=== PATIENT | male | born 1990 | race Caucasian/White ===

== ENCOUNTER 2018-04-30 21:17 | Emergency (ER) | payer BC ==
[~2018-04-30] VITALS: Ht 167.6 cm; Wt 70.3 kg
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
[2018-04-30] MEDS ORDERED: LIDOCAINE 1%-EPI 1:100,000 20 ML VIAL ONE (21:38)
[2018-04-30 22:14] LABS: BASOPHILS % (AUTO) 0.5 % (0.0-2.0); EOSINOPHILS % (AUTO) 2.5 % (0.0-6.0); HEMATOCRIT 47 % (39-51); LYMPHOCYTES # (AUTO) 1.8 /CMM (0.8-4.8); LYMPHOCYTES % (AUTO) 23.6 % (20.0-44.0); MEAN CORPUSCULAR HGB CONC 34 g/dl (31.0-36.0); MEAN CORPUSCULAR VOLUME 97 fL (80-96); MONOCYTES # (AUTO) 0.6 /CMM (0.1-1.30); MONOCYTES % (AUTO) 7.4 % (2.0-12.0); NEUTROPHILS # (AUTO) 5.1 /CMM (1.8-8.9); PLATELET COUNT (AUTO) 229 /CMM (150-450); RDW COEFFICIENT OF VARIATION 12.7 (11.5-15.0); RED BLOOD CELL COUNT(AUTO) 4.85 MIL/uL (4.5-6.0); WHITE BLOOD COUNT (AUTO) 7.7 K/uL (4.3-11.0)
[2018-04-30 22:27] LABS: CALCIUM, SERUM 8.9 mg/dL (8.5-10.1); CREATININE 0.9 mg/dL (0.6-1.3); POTASSIUM 3.7 mmol/L (3.5-5.1)
[2018-04-30 22:33] LABS: ALBUMIN 4.2 g/dL (3.4-5.0); BILIRUBIN,DIRECT 0.1 mg/dL (0.0-0.2); BILIRUBIN,TOTAL 0.8 mg/dL (0.2-1.0); SALICYLATE 2.8 mg/dL (2.8-20.0); TOTAL PROTEIN, SERUM 7.5 g/dL (6.4-8.2)
--- NOTE | 2018-04-30 22:37 | NUR ---
CALLED ART FOR PSYCH EVAL, ETA WITHIN THE HOUR.
[2018-04-30 22:54] LABS: APPEARANCE,URINE CLEAR (CLEAR); BILIRUBIN,URINE NEGATIVE (NEGATIVE); BLOOD, URINE NEGATIVE Ery/uL (NEGATIVE); COLOR,URINE YELLOW (YELLOW); KETONES,URINE NEGATIVE (NEGATIVE); LEUKOCYTE ESTERASE ,URINE NEGATIVE (NEGATIVE); NITRITE, URINE NEGATIVE (NEGATIVE); PROTEIN,URINE NEGATIVE (NEGATIVE); UGLUCOSE NEGATIVE (NEGATIVE); UROBILINOGEN,URINE 0.2 EU/dL (0.2)
--- NOTE | 2018-04-30 23:25 | NUR ---
AWAITNG FOR PSYCHE EVALUATION. VSS
--- NOTE | 2018-04-30 23:36 | NUR ---
ART AT BEDSIDE FOR EVAL.
--- NOTE | 2018-05-01 00:30 | NUR ---
Patient discharged to home in stable condition. Written and verbal after care instructions given. Patient verbalizes understanding of instruction. ambulatory with a steady gait. pt accompanied by mother
[2018-05-01 02:20] VITALS: BP 128/68
== END 2018-05-01 00:30 | disposition home or self-care (01) ==
LOC: ER 21:19
DX: S51.812A Laceration without foreign body of left forearm, initial encounter (principal); X78.1XXA Intentional self-harm by knife, initial encounter; Y93.89 Activity, other specified; Y92.89 Other specified places as the place of occurrence of the external cause; Y99.8 Other external cause status
CPT/HCPCS: 36415; 80048-TC; 80076-TC; 80305; 81000-TC; 85025-TC; A4606; A6402; A6403; G0480; J3490; Z7610

== ENCOUNTER 2018-05-03 08:52 | Emergency (ER) | payer BC, OTHER ==
[~2018-05-03] VITALS: Ht 167.6 cm; Wt 72.6 kg
[2018-05-03 09:00] VITALS: BP 123/56
== END 2018-05-03 09:58 | disposition home or self-care (01) ==
LOC: ER 08:54
DX: S51.812D Laceration without foreign body of left forearm, subsequent encounter (principal)
CPT/HCPCS: 99281; A4606; A6403; Z7610; Z7502

== ENCOUNTER 2018-05-08 10:31 | Emergency (ER) | payer BC, OTHER ==
[~2018-05-08] VITALS: Ht 167.6 cm; Wt 70.3 kg
[2018-05-08 10:32] VITALS: BP 122/72
== END 2018-05-08 10:54 | disposition home or self-care (01) ==
LOC: ER 10:34
DX: S51.812D Laceration without foreign body of left forearm, subsequent encounter (principal); Z60.2 Problems related to living alone; X58.XXXD Exposure to other specified factors, subsequent encounter
CPT/HCPCS: A4606; A6402; Z7610

== ENCOUNTER 2018-05-15 14:12 | Emergency (ER) | payer BC, OTHER ==
[~2018-05-15] VITALS: Ht 167.6 cm; Wt 72.6 kg
[2018-05-15 14:12] VITALS: BP 126/71
== END 2018-05-15 15:04 | disposition home or self-care (01) ==
LOC: ER 14:14
DX: S51.812D Laceration without foreign body of left forearm, subsequent encounter (principal); X58.XXXD Exposure to other specified factors, subsequent encounter; Z60.2 Problems related to living alone
CPT/HCPCS: 99281; A4606; Z7610; Z7502

== ENCOUNTER 2018-11-18 14:24 | Emergency (ER) | payer BC, OTHER ==
[~2018-11-18] VITALS: Ht 165.1 cm; Wt 73.5 kg
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
--- NOTE | 2018-11-18 15:15 | NUR ---
Nati santoyo in [facility] - 11/18/18 at 1522 by ISABEL FALGUNI AT BEDSIDE
--- NOTE | 2018-11-18 15:34 | NUR ---
XRAY AT BEDSIDE
--- NOTE | 2018-11-18 16:31 | NUR ---
Patient discharged to home in stable condition. Written and verbal after care instructions given. Patient verbalizes understanding of instruction.
[2018-11-18 16:48] VITALS: BP 114/54
== END 2018-11-18 16:31 | disposition home or self-care (01) ==
LOC: ER 14:25
DX: S60.221A Contusion of right hand, initial encounter (principal); T81.31XA Disruption of external operation (surgical) wound, not elsewhere classified, initial encounter; Z60.2 Problems related to living alone; W19.XXXA Unspecified fall, initial encounter; Y93.89 Activity, other specified; Y92.89 Other specified places as the place of occurrence of the external cause; Y99.8 Other external cause status
CPT/HCPCS: 29125; 73130; 99283; A4606; Z7610

== ENCOUNTER 2019-02-06 10:48 | Emergency (ER) | payer BC, OTHER ==
[~2019-02-06] VITALS: Ht 165.1 cm; Wt 72.6 kg
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
--- NOTE | 2019-02-06 11:50 | NUR ---
Rx provided for ibuprofen and explained to patient. Patient discharged to home in stable condition. Written and verbal after care instructions given. Patient verbalizes understanding of instruction.
[2019-02-06 11:51] VITALS: BP 137/78
== END 2019-02-06 11:52 | disposition home or self-care (01) ==
LOC: ER 10:53
DX: S63.591A Other specified sprain of right wrist, initial encounter (principal); F10.10 Alcohol abuse, uncomplicated; R56.9 Unspecified convulsions; Y90.9 Presence of alcohol in blood, level not specified; Z60.2 Problems related to living alone; V00.131A Fall from skateboard, initial encounter; Y93.51 Activity, roller skating (inline) and skateboarding; Y92.89 Other specified places as the place of occurrence of the external cause; Y99.8 Other external cause status
CPT/HCPCS: 73110